=== PATIENT | female | born 1975 | race Caucasian/White ===

== ENCOUNTER → 2021-09-01 | Outpatient (CLI) | payer MEDICARE, OTHER ==
[~2021-09-01] MED LIST: ALL DAY ALLERGY10 M2 PO; ALPRAZOLAM0.5 MG PO; CRESTOR10 MG PO; EFFEXOR XR75 MG PO; VIBRAMYCIN100 MG PO; VITAMIN D 11000 UNIT PO; ZANTAC150 MG PO
== END ==
LOC: HEART 5 10:27
DX: R06.02 Shortness of breath (principal)
CPT/HCPCS: 94010; 94729; 95012